=== PATIENT | female | born 1950 | race Caucasian/White ===

== ENCOUNTER → 2018-05-24 | Outpatient (REF) | payer MEDICARE ==
[~2018-05-24] MED LIST: ALB0.5 INH; AML5 PO; AMLO-104 PO; ASC500 PO; ASCO60LO11 PO; ASPI-715 PO; AZIT500T47 PO; BUPXL150 PO; CALC600T72 PO; CHOL100062 PO; CIP500 PO; CLA500 PO; DUONEB INH; ESOM40CA42 PO; EZE10 PO; FOL1 PO; FURO-45 PO; GLI5 PO; GUAI1200 PO; HCTZ25 PO; HUMALOG SC; INSU100I36 SQ; LANI SC; LANI SUBQ; LEV500 PO; LOR5 PO; LOR5/325 PO; MET16 PO; METF-420 PO; METH25VI IJ; MON10 PO; MOXI400T28 PO; MULT-1 PO; NEB5 PO; OM-31CAP PO; OMEG-11 PO; OXYC-865 PO; OXYC20TA86 PO; OXYGEN INH; PAN40 PO; PER PO; PRA20 PO; PRAV10TA45 PO; PRE10 PO; PRE20 PO; PREG25 PO; QUIN40TA24 PO; SITA100T9 PO; TIO18R INH; VIT D; VITA-324 PO; VITA1CAP8 PO; [UNRECOGNIZED DRUG - CODE] PO; [UNRECOGNIZED DRUG - CODE] PO
== END ==
LOC: ZZSENDIN 14:39
PROVIDERS: ATTEND Family Medicine
DX: R60.0 Localized edema (principal)
CPT/HCPCS: 83880

== ENCOUNTER 2018-11-26 12:33 | Emergency (ER) | payer MEDICARE ==
--- NOTE | 2018-11-26 13:17 | ER Report ---
History and Physical Time Seen By MD: 12:45 Hx. of Stated Complaint: pt reports severe swelling in lower extremities past month, started weeping yesterday, pain in legs HPI/ROS CHIEF COMPLAINT: Leg swelling and pain HISTORY OF PRESENT ILLNESS: 68-year-old female presents with one month of right lower extremity greater than left lower extremity swelling with pain. Patient notes persistent swelling that has been gradually increasing and started day ago was associated with clear drainage from the right calf. Patient has history of CHF and COPD and is on 3 L of oxygen for COPD. She continues to smoke a half a pack a day. She is supposed to be on Lasix but states that states she stopped taking her medications one month ago as she ran out of money. She has had ongoing dyspnea that has been worse times one month but is not acutely worse at this point. She denies chest pain. She states she has had chills times one month and those are gradually worse and increased at this point as well. She denies abdominal pain or vomiting. No change in urination. No diarrhea. She denies history of DVT. Nursing note states blood clots, however upon clarification, patient points to varicose veins at the heels and states that she was told this may be blood clots. She has never been on anticoagulation. She does take a baby aspirin daily. No recent travel REVIEW OF SYSTEMS: Constitutional: above Eyes: No discharge. ENT: No sore throat. Cardiovascular: No chest pain, no palpitations. Respiratory: above Gastrointestinal: No abdominal pain, no vomiting. Genitourinary: no change in urination Musculoskeletal: No back pain; otherwise as above Skin: lower extremity as above Neurological: No headache. Remainder of the 14 system rev: Yes Allergies: Coded Allergies: Penicillins (Verified Allergy, Mild, HIVES, 09/27/14) Home Meds Active Scripts Sulfamethoxazole/Trimet 800-160 Mg Tab (BACTRIM DS TABLET) 1 Each Tablet, 1 TAB PO Q12H for 7 Days, #14 TAB Prov:KAVITA MALIK MD 11/26/18 Reported Medications Guaifenesin (MUCINEX) 1,200 Mg Tbmp.12hr, 1200 MG PO PRN for CONGESTION 12/18/15 Vitamin B Complex (B Complete) 1 Tab Tablet, 1 TAB PO QDAY 11/07/12 Pravastatin Sod (Pravachol) 20 Mg Tab, 10 MG PO QDAY 11/07/12 Oxygen (Oxygen) 2 L Inha, 3 L INH HS At night and as needed during the day 11/07/12 Folic Acid (FOLIC ACID (OR EQUIV)) 1 Mg Tab, 1 MG PO QDAY 11/07/12 Calcium Citrate (Calcium Citrate) 500 Gm Powder, 500 GM PO 11/07/12 Albuterol/Ipratropium (Duoneb) 3 Ml Soln, 3 ML INH TID 04/10/12 Furosemide (Furosemide) 20 Mg Tablet, 20 MG PO TID 2 tablets in AM and 1 tablet in the afternoon 04/02/12 Pantoprazole Sod (Protonix) 40 Mg Tabec, 40 MG PO QDAY 04/02/12 Nebivolol Hcl (Bystolic) 5 Mg Tablet, 5 MG PO DAILY 04/02/12 Sitagliptin Phosphate (Januvia) 100 Mg Tablet, 100 MG PO DAILY 04/02/12 Insulin Glargine (Lantus) 100 U/Ml Soln, 80 U SC QAM 04/02/12 Tiotropium [place] (Spiriva) 18 Mcg Inh, 1 PUFF INH DAILY 04/02/12 Albuterol Sulfate (Albuterol Inh Conc) 2.5 Mg/0.5 Ml Nebu, 2.5 MG INH Q2H 09/03/11 Aspirin (Aspirin) 81 Mg Tablet.dr, 81 MG PO DAILY 09/03/11 Docosahexanoic Acid/Epa (Fish Oil 1,000 Mg Capsule) 1 Cap Capsule, 1 CAP PO DAILY 09/03/11 Pregabalin (Lyrica) 25 Mg Cap, 75 MG PO BID 09/03/11 Insulin Human Lispro (Humalog) 100 U/Ml Soln, 6-8 UNIT SC TIDAC 09/03/11 Multivitamins W-Minerals/Lut (Centrum Silver Tablet) 1 Tab Tablet, 1 TAB PO DAILY 09/03/11 Bupropion Hcl (Wellbutrin Xl) 150 Mg Tabcr, 150 MG PO BID 09/03/11 Montelukast Sodium (Singulair) 10 Mg Tab, 10 MG PO QDAY 09/03/11 Quinapril Hcl (Accupril) 40 Mg Tablet, 40 MG PO BID 09/03/11 Metformin Hcl (Glucophage) 1,000 Mg Tablet, 1000 MG PO BIDBS Resume 11/0909/03/11 Discontinued Reported Medications Insulin Glargine (LANTUS) 100 Unit/Ml Soln, 60 UNIT SUBQ QHS, ML 12/18/15 Ezetimibe (Zetia) 10 Mg Tab, 10 MG PO QHS 11/07/12 Glyburide (GLYBURIDE) 5 Mg Tablet, 5 MG PO QDAY 11/07/12 Methotrexate Sodium/Pf (Methotrexate 1 Gm/40 Ml Vial) 25 Mg/1 Ml Vial, 0.6 MG IJ Weekly 09/03/11 Reviewed Nurses Notes: Yes Old Medical Records Reviewed: Yes Hx Smoking: Yes Smoking Status: Current: Every Day Smoker Exposure to Second Hand Smoke?: Yes Hx Substance Use Disorder: No Hx Alcohol Use: Yes (dmitry at night ) Constitutional Vital Sign - Last 24 Hours 11/26/18 11/26/18 11/26/18 11/26/18 12:40 12:43 12:48 13:00 Temp 98.3 Pulse 79 76 Resp 20 B/P (MAP) 131/55 (80) 131/55 135/56 (82) Pulse Ox 85 99 O2 Delivery Room Air 11/26/18 11/26/18 11/26/18 11/26/18 13:03 13:18 13:30 13:33 Pulse 78 76 77 B/P (MAP) 124/52 (76) Pulse Ox 95 97 92 11/26/18 11/26/18 11/26/18 11/26/18 13:38 13:53 14:00 14:08 Pulse 76 78 76 Resp 17 20 B/P (MAP) 139/55 (83) Pulse Ox 97 94 11/26/18 11/26/18 11/26/18 11/26/18 14:23 14:30 14:38 14:53 Pulse 81 78 77 Resp 50 57 B/P (MAP) 130/56 (80) Pulse Ox 92 94 11/26/18 11/26/18 11/26/18 11/26/18 15:00 15:08 15:23 15:30 Pulse 78 77 Resp 18 20 B/P (MAP) 125/55 (78) ???/??? (1665) Pulse Ox 95 94 11/26/18 11/26/18 11/26/18 11/26/18 15:35 15:50 16:00 16:05 Pulse 78 ? Resp 54 B/P (MAP) ???/??? (1665) Pulse Ox 94 11/26/18 11/26/18 11/26/18 11/26/18 16:20 16:30 16:35 16:50 Pulse 77 76 75 Resp 45 18 B/P (MAP) 127/54 (78) Pulse Ox 93 93 95 11/26/18 11/26/18 11/26/18 17:00 17:05 17:20 Pulse ? B/P (MAP) 136/54 (81) Physical Exam General Appearance: The patient is alert, has no immediate need for airway protection and no signs of toxicity. Eyes: Pupils equal and round no pallor or injection. ENT, Mouth: Mucous membranes are moist. Respiratory: basilar occ ronchi. No wheezes, no tachypnea Cardiovascular: Regular rate and rhythm. Gastrointestinal: Abdomen is soft and non tender, no masses, bowel sounds normal. Neurological: alert, oriented, no gross deficits Skin: mild erythema 8x8cm r medial calf that overlies edema, with clear serous drainage. Musculoskeletal: R popliteal ttp without fullness or mass. R distal thigh ttp without cord. R edema throughout ankle/calf to knee with fullness r mid medial calf without clear cellulitis or lymphangitic spread. Mild L ankle edema. CR < 2sec bilaterally. Compartments are soft. DIFFERENTIAL DIAGNOSIS: After history and physical exam differential diagnosis was considered for DVT, cellulitis, chf, carmen, or other emergent cause of symptoms. Medical Decision Making Data Points Result Diagram: 11/26/18 1320 11/26/18 1320 Laboratory Hematology Test 11/26/18 13:20 11/26/18 14:00 Red Blood Count 3.53 M/uL (4.17-5.56) Mean Corpuscular Volume 75.5 fL (80.0-96.0) Mean Corpuscular Hemoglobin 22.5 pg (26.0-33.0) Mean Corpuscular Hemoglobin Concent 29.7 g/dL (32.0-36.0) Red Cell Distribution Width 20.8 % (11.5-14.5) Mean Platelet Volume 7.8 fL (7.2-11.1) Neutrophils (%) (Auto) 54.7 % (39.4-72.5) Lymphocytes (%) (Auto) 32.1 % (17.6-49.6) Monocytes (%) (Auto) 10.9 % (4.1-12.4) Eosinophils (%) (Auto) 1.5 % (0.4-6.7) Basophils (%) (Auto) 0.8 % (0.3-1.4) Nucleated RBC Relative Count (auto) 0.0 /100WBC Neutrophils # (Auto) 2.2 K/uL (2.0-7.4) Lymphocytes # (Auto) 1.3 K/uL (1.3-3.6) Monocytes # (Auto) 0.4 K/uL (0.3-1.0) Eosinophils # (Auto) 0.1 K/uL (0.0-0.5) Basophils # (Auto) 0.0 K/uL (0.0-0.1) Nucleated RBC Absolute Count (auto) 0.00 K/uL Prothrombin Time 14.6 seconds (12.0-14.4) Prothromb Time International Ratio 1.14 Activated Partial Thromboplast Time 37 seconds (23-35) Sodium Level 138 mmol/L (137-145) Potassium Level 3.8 mmol/L (3.5-5.0) Chloride Level 108 mmol/L (98-107) Carbon Dioxide Level 25 mmol/L (22-31) Blood Urea Nitrogen 10 mg/dl (7-18) Creatinine 0.50 mg/dl (0.52-1.04) Glomerular Filtration Rate Calc > 60.0 Random Glucose 115 mg/dl (75-110) Calcium Level 8.0 mg/dl (8.4-10.2) Total Bilirubin 0.1 mg/dl (0.2-1.3) Aspartate Amino Transf (AST/SGOT) 32 U/L (0-35) Alanine Aminotransferase (ALT/SGPT) 27 U/L (0-56) Alkaline Phosphatase 170 U/L (0-126) B-Type Natriuretic Peptide 17 pg/ml (0-100) Total Protein 6.3 g/dl (6.3-8.2) Albumin 2.8 g/dl (3.5-5.0) Urine Color Yellow Urine Clarity Clear Urine pH 5.0 pH (4.8-9.5) Urine Specific [place] 1.021 Urine Protein Negative mg/dL (NEGATIVE) Urine Glucose (UA) Negative mg/dL (NEGATIVE) Urine Ketones Negative mg/dL (NEGATIVE) Urine Blood Negative (NEGATIVE) Urine Nitrite Negative (NEGATIVE) Urine Bilirubin Negative (NEGATIVE) Urine Urobilinogen 2.0 mg/dL (0.2-1.9) Urine Leukocyte Esterase Negative (NEGATIVE) Urine RBC None /HPF (0-2/HPF) Urine WBC 3 /HPF (0-5/HPF) Urine Squamous Epithelial Cells Many /LPF (NONE-FEW) Urine Bacteria Few /HPF (NONE-FEW) Urine Mucus Few /HPF (NONE-FEW) Chemistry Test 11/26/18 13:20 11/26/18 14:00 White Blood Count 4.0 k/uL (4.5-11.0) Red Blood Count 3.53 M/uL (4.17-5.56) Hemoglobin 7.9 g/dL (12.0-16.0) Hematocrit 26.7 % (34.0-47.0) Mean Corpuscular Volume 75.5 fL (80.0-96.0) Mean Corpuscular Hemoglobin 22.5 pg (26.0-33.0) Mean Corpuscular Hemoglobin Concent 29.7 g/dL (32.0-36.0) Red Cell Distribution Width 20.8 % (11.5-14.5) Platelet Count 133 K/uL (150-450) Mean Platelet Volume 7.8 fL (7.2-11.1) Neutrophils (%) (Auto) 54.7 % (39.4-72.5) Lymphocytes (%) (Auto) 32.1 % (17.6-49.6) Monocytes (%) (Auto) 10.9 % (4.1-12.4) Eosinophils (%) (Auto) 1.5 % (0.4-6.7) Basophils (%) (Auto) 0.8 % (0.3-1.4) Nucleated RBC Relative Count (auto) 0.0 /100WBC Neutrophils # (Auto) 2.2 K/uL (2.0-7.4) Lymphocytes # (Auto) 1.3 K/uL (1.3-3.6) Monocytes # (Auto) 0.4 K/uL (0.3-1.0) Eosinophils # (Auto) 0.1 K/uL (0.0-0.5) Basophils # (Auto) 0.0 K/uL (0.0-0.1) Nucleated RBC Absolute Count (auto) 0.00 K/uL Prothrombin Time 14.6 seconds (12.0-14.4) Prothromb Time International Ratio 1.14 Activated Partial Thromboplast Time 37 seconds (23-35) Glomerular Filtration Rate Calc > 60.0 Calcium Level 8.0 mg/dl (8.4-10.2) Total Bilirubin 0.1 mg/dl (0.2-1.3) Aspartate Amino Transf (AST/SGOT) 32 U/L (0-35) Alanine Aminotransferase (ALT/SGPT) 27 U/L (0-56) Alkaline Phosphatase 170 U/L (0-126) B-Type Natriuretic Peptide 17 pg/ml (0-100) Total Protein 6.3 g/dl (6.3-8.2) Albumin 2.8 g/dl (3.5-5.0) Urine Color Yellow Urine Clarity Clear Urine pH 5.0 pH (4.8-9.5) Urine Specific [place] 1.021 Urine Protein Negative mg/dL (NEGATIVE) Urine Glucose (UA) Negative mg/dL (NEGATIVE) Urine Ketones Negative mg/dL (NEGATIVE) Urine Blood Negative (NEGATIVE) Urine Nitrite Negative (NEGATIVE) Urine Bilirubin Negative (NEGATIVE) Urine Urobilinogen 2.0 mg/dL (0.2-1.9) Urine Leukocyte Esterase Negative (NEGATIVE) Urine RBC None /HPF (0-2/HPF) Urine WBC 3 /HPF (0-5/HPF) Urine Squamous Epithelial Cells Many /LPF (NONE-FEW) Urine Bacteria Few /HPF (NONE-FEW) Urine Mucus Few /HPF (NONE-FEW) Coagulation Test 11/26/18 13:20 Prothrombin Time 14.6 seconds Prothromb Time International Ratio 1.14 Activated Partial Thromboplast Time 37 seconds Urinalysis Test 11/26/18 14:00 Urine Color Yellow Urine Clarity Clear Urine pH 5.0 pH (4.8-9.5) Urine Specific [place] 1.021 Urine Protein Negative mg/dL (NEGATIVE) Urine Glucose (UA) Negative mg/dL (NEGATIVE) Urine Ketones Negative mg/dL (NEGATIVE) Urine Blood Negative (NEGATIVE) Urine Nitrite Negative (NEGATIVE) Urine Bilirubin Negative (NEGATIVE) Urine Urobilinogen 2.0 mg/dL (0.2-1.9) Urine Leukocyte Esterase Negative (NEGATIVE) Urine RBC None /HPF (0-2/HPF) Urine WBC 3 /HPF (0-5/HPF) Urine Squamous Epithelial Cells Many /LPF (NONE-FEW) Urine Bacteria Few /HPF (NONE-FEW) Urine Mucus Few /HPF (NONE-FEW) Microbiology Microbiology Date/Time Source Procedure Growth Status 11/26/18 15:07 Blood Peripheral Draw Blood Culture - Preliminary NO GROWTH AFTER 1 DAY, REINCUBATED Resulted 11/26/18 15:00 Blood Line Draw Blood Culture - Preliminary NO GROWTH AFTER 1 DAY, REINCUBATED Resulted EKG/Imaging EKG Interpretation 12 lead EKG: Rhythm: normal sinus rhythm [place]: normal QRS: normal ST segments: slight st dep III, avF, v4-6; NSR; ekg complicated by artifcat [ ] Monitor Interpretation: Normal Sinus Rhythm ED Course/Re-evaluation ED Course Pt presents with RLE swelling; initially concerned for DVT, chf, carmen, however initial w/up unremarkable; ultimately findings most c/w cellulitis; pt does state symptoms began before scratches from new cat, but does have multiple scratches surrounding this area; she does not have notable proximal or surrounding lymphadenopathy, therefore will cover for multiple potential etiologies; blood cultures drawn to tailor tx if necessary. Pt understands SRP's and is hd stable on d/c. Decision to Disposition Date: Nov 26, 2018 Decision to Disposition Time: 16:55 Depart Departure Latest Vital Signs Vital Signs Date Time Temp Pulse Resp B/P (MAP) Pulse Ox O2 Delivery O2 Flow Rate FiO2 11/26/18 17:20 ??? 11/26/18 17:00 136/54 (81) 11/26/18 16:50 95 11/26/18 16:35 18 11/26/18 12:43 98.3 Room Air Impression: Primary Impression: Cellulitis Additional Impression: Anemia, unspecified Condition: Improved Disposition: HOME OR SELF-CARE Referrals: MARGRET ALFONSO DO (PCP) 2 Days New Scripts Sulfamethoxazole/Trimet 800-160 Mg Tab (BACTRIM DS TABLET) 1 Each Tablet 1 TAB PO Q12H for 7 Days, #14 TAB Prov: KAVITA MALIK MD 11/26/18 Patient Instructions: Anemia (ED), Cellulitis (ED) Additional Instructions: As we discussed, it is important you take the complete course of antibiotics for yoru infection. Please follow up with your primary doctor in 2-3 days for recheck of your leg, as well as reassessment of your other medical problems. You have evidence of worsening anemia (low blood count) and fluid overload. You need to restart the medications you have been prescribed by your primary doctor. Please return immediately for worsening swelling, pain, fevers, feeling faint, reaction to medication or any concerns. You may use aspirin and tylenol for pain, as well as ice 20 minutes at a time. Problem Qualifiers Primary Impression: Cellulitis Site of cellulitis: extremity Site of cellulitis of extremity: lower extremity Laterality: right Qualified Codes: L03.115 - Cellulitis of right lower limb Additional Impression: Anemia, unspecified Anemia type: unspecified type Qualified Codes: D64.9 - Anemia, unspecified KAVITA MALIK MD Nov 26, 2018 13:17
[2018-11-26 13:35] LABS: PLATELET COUNT, AUTOMATED 133 K/uL (150-450)
[2018-11-26 13:42] LABS: INR 1.14
--- NOTE | 2018-11-26 13:52 | EKG ---
FACILITY: [facility] PATIENT NAME: VIKKI BARRAZA : [id number] MR: [id number] V: [id number] EXAM DATE: ORDERING PHYSICIAN: KAVITA MALIK TECHNOLOGIST: TE Test Reason : DYSPNEA Blood Pressure : / mmHG Vent. Rate : 074 BPM Atrial Rate : 075 BPM P-R Int : 000 ms QRS Dur : 086 ms QT Int : 394 ms P-R-T Axes : 000 043 046 degrees QTc Int : 437 ms Accelerated Junctional rhythm Significant artifact makes interpretation impossible. When compared with ECG of 07-NOV-2012 12:44, Artifact continues to interfere with interpretation Confirmed by Sohan Jaimes ([id number]) on 11/27/2018 6:55:13 AM Referred By: KING Confirmed By:Sohan Fierro
--- NOTE | 2018-11-26 14:06 | RADIOLOGY IMAGING REPORT ---
[place] [facility] [place] Sierra Oviedo : 1950 MR: [id number] V: [id number] EXAM DATE: ORDERING PHYSICIAN: KAVITA MALIK TECHNOLOGIST: Location: [facility] Patient: Sierra Oviedo : 1950 Visit/Account:[id number] Date of Sevice: 11/26/2018 EXAMINATION: Portable AP Chest 11/26/2018 1:02 PM HISTORY: dyspnea COMPARISON: 11/07/2012 FINDINGS: Cardiomediastinal contours: Essentially stable heart size allowing for positioning and technique. Ath erosclerotic aorta. Lungs and pleura: Vasculature is unchanged. Minimal atelectasis or scarring in the bases. Bones/soft tissues: Osteopenia. IMPRESSION: No significant acute cardiopulmonary finding. Report Dictated By: Jhoan Agarwal MD at 11/26/2018 2:01 PM Report E-Signed By: Jhoan Agarwal MD at 11/26/2018 2:03 PM WSN:[id number]
--- NOTE | 2018-11-26 14:49 | RADIOLOGY IMAGING REPORT ---
FACILITY: [facility] PATIENT NAME: Sierra Oviedo : 1950 MR: [id number] V: [id number] EXAM DATE: ORDERING PHYSICIAN: KAVITA MALIK TECHNOLOGIST: Location: [facility] [place] Patient: Sierra Oviedo : 1950 Visit/Account:[id number] Date of Sevice: 11/26/2018 EXAMINATION: Unilateral right lower extremity deep vein duplex Doppler ultrasound 11/26/2018 1:02 PM History: right calf edema, r popliteal ttp COMPARISON: None FINDINGS: Grayscale compression, duplex and color Doppler interrogation of the right lower extremity deep veins from common femoral vein to proximal calf was performed. The greater saphenous vein in the ipsilater al proximal thigh was evaluated using similar technique. Right lower extremity: Common femoral vein negative Femoral vein negative Deep femoral vein - negative Popliteal vein negative Visualized deep calf veins negative for clot. There is subcutaneous edema in the lower leg and behin d the knee. Greater saphenous vein in the proximal thigh negative Popliteal fossa: negative IMPRESSION: Negative right lower extremity evaluation for DVT Report Dictated By: Jhoan Agarwal MD at 11/26/2018 2:44 PM Report E-Signed By: Jhoan Agarwal MD at 11/26/2018 2:46 PM WSN:[email or web address]
[2018-11-26] MEDS ORDERED: VANCOMYCIN(*) 1 GM VIAL 1 GM, VANCOMYCIN (*) 0.5 GM VIAL 0.2 GM in NS(*) 0.9% 250 ML BA... IVPB ONE (14:55)
[2018-11-26] MEDS ORDERED: DIPHTH/TETANUS/ACEL. PERTUSSIS IM ONLY ONE (14:55)
[2018-11-26] MEDS ORDERED: IOPAMIDOL 76% 75 ML INFUS BTL 75 ML ONE (15:07)
--- NOTE | 2018-11-26 16:40 | RADIOLOGY IMAGING REPORT ---
FACILITY: [facility] PATIENT NAME: Sierra Oviedo : 1950 MR: [id number] V: [id number] EXAM DATE: ORDERING PHYSICIAN: KAVITA MALIK TECHNOLOGIST: Location: [facility] - [place], [place] Patient: Sierra Oviedo : 1950 Visit/Account:[id number] Date of Sevice: 11/26/2018 Exam type: CT TIB/FIB W/ RT INDICATION: Swelling of unclear etiology. Dyspnea. COMPARISON: 75 mL Isovue-[id number]. Technique: Axial CT images of the right tibia/fibula with IV contrast r. Reformatted coronal and sagi ttal images were reviewed. One of the following dose optimization techniques was utilized in the performance of this exam: autom ated exposure control; adjustment of the mA and/or kV according to the patient's size; or use of an i terative reconstruction technique. Specific details can be referenced in the facility's radiology CT exam operational policy. FINDINGS: Chronic ORIF changes from tibial plateau fracture. There is bilateral plate and screw fixation hardwa re. The inferior lateral screw is fractured, likely chronic in etiology. There are chronic chronic he aled fractures of the fibula. Chronic nonunion versus subacute fracture fracture of the mid/distal fi bular shaft. Extensive nonspecific subcutaneous edema within the calf, extending into the ankle there is no subcut aneous emphysema. No fascial or intramuscular edema or gas. No focal fluid collections identified. No gross venous thrombosis. IMPRESSION: 1. Extensive nonspecific subcutaneous edema. No subcutaneous emphysema or focal fluid collections id entified. 2. Chronic post tibial plateau ORIF changes. One of the lateral fixation screws is fractured, likely chronic. 3. 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 This theoretically coul d represent a subacute healing fracture although felt unlikely. Report Dictated By: Sunday Cantrell MD at 11/26/2018 4:29 PM Report E-Signed By: Sunday Cantrell MD at 11/26/2018 4:36 PM WSN:[id number]
[2018-11-26] MEDS ORDERED: SULF-198 PO (16:52)
[2018-11-26 17:00] VITALS: BP 136/54
== END 2018-11-26 17:25 | disposition home or self-care (01) ==
LOC: ER 12:43
DX: L03.115 Cellulitis of right lower limb (principal); D64.9 Anemia, unspecified; F17.210 Nicotine dependence, cigarettes, uncomplicated
CPT/HCPCS: 36415; 71045; 73701; 81001; 83880; 85025; 85610; 85730; 87040; 90471; 90715; 93005; 93971; 96365; 96366; 99285; A4353; J3370; J7050; Q9967; 82040; 82247; 82310; 82374; 82435; 82565; 82947; 84075; 84132; 84155; 84295; 84450; 84460; 84520

== ENCOUNTER → 2019-01-31 | Outpatient (CLI) | payer MEDICARE ==
[~2019-01-31] MED LIST changes: +SULF-198 PO
--- NOTE | 2019-01-31 16:34 | RADIOLOGY IMAGING REPORT ---
FACILITY: [facility] PATIENT NAME: Sierra Oviedo : 1950 MR: [id number] V: [id number] EXAM DATE: ORDERING PHYSICIAN: MARGRET ALFONSO TECHNOLOGIST: Location: [facility] - [place] Patient: Sierra Oviedo : 1950 Visit/Account:[id number] Date of Sevice: 01/31/2019 CHEST PA LAT History: Cough and right-sided chest pain FINDINGS: Comparison studies: 11/26/2018 and 11/07/2012 Tubes and Lines: None. Lungs and pleura: There is a new hazy opacity along the right lateral pleura. Lungs appear well-ae rated. Mediastinum: normal. Cardiac silhouette: normal . Osseous structures: Old right fifth rib fracture again noted. There is a new acute right sixth and possible seventh rib fracture with mild displacement. There is a distal left clavicular shaft with one bone width displacement. Retrospectively this fract ure was present in November although difficult to see as the fracture overlying the scapula. It is ne w from 2011. IMPRESSION: Acute right lateral sixth and seventh rib fractures with subpleural reactive thickening or small he mothorax. No evidence of pneumothorax. Displaced left clavicular shaft fracture which is at least two months old. Results were called to MARGRET ALFONSO at 01/31/2019 4:12 PM. Report Dictated By: Rolf Allison MD at 01/31/2019 4:12 PM Report E-Signed By: Rolf Allison MD at 01/31/2019 4:30 PM WSN:[email or web address]
== END ==
LOC: RAD 15:07
PROVIDERS: ATTEND Family Medicine
DX: S22.41XA Multiple fractures of ribs, right side, initial encounter for closed fracture (principal); S42.022A Displaced fracture of shaft of left clavicle, initial encounter for closed fracture
CPT/HCPCS: 71046

== ENCOUNTER 2019-02-13 17:16 | Emergency (ER) | payer MEDICARE ==
--- NOTE | 2019-02-13 17:24 | ER Report ---
History and Physical Time Seen By MD: 17:18 HPI/ROS CHIEF COMPLAINT: fall HISTORY OF PRESENT ILLNESS: PT had a fall three times today. Initial fall was this am when sitting up on side of bed and tried to move the dog and tripped on dog. States she hit her chin when she fell this am. Denies headache or neck pain. EMS was called for lift assist at that time. PT this afternoon fell a second time getting coffee in the kitchen. Ems was called for lift assist. PT had a third fall airplane captain stating "my legs are wobbly and gave out". Ems was called again but this time pt has obvious deformity of femur. Pt was given fentanyl 150mcg was given for pain and pt sent to ED. Pt is alert and talkative. Pt states she has pain in her mid thigh and cannot move her leg. Pt denies numbness. PT with large abdomen but states that is not new. PT has doppler pulses b/l lwer extremities REVIEW OF SYSTEMS: Constitutional: No fever, no chills. Eyes: No discharge. ENT: No sore throat. Cardiovascular: No chest pain, no palpitations. Respiratory: No cough, no shortness of breath. Gastrointestinal: No abdominal pain, no vomiting. Genitourinary: No hematuria. Musculoskeletal: No back pain. r leg pain Skin: No rashes. Neurological: No headache. Allergies: Coded Allergies: Penicillins (Verified Allergy, Mild, HIVES, 02/13/19) Home Meds Active Scripts Sulfamethoxazole/Trimet 800-160 Mg Tab (BACTRIM DS TABLET) 1 Each Tablet, 1 TAB PO Q12H for 7 Days, #14 TAB Prov:KAVITA MALIK MD 11/26/18 Reported Medications Guaifenesin (MUCINEX) 1,200 Mg Tbmp.12hr, 1200 MG PO PRN for CONGESTION 12/18/15 Vitamin B Complex (B Complete) 1 Tab Tablet, 1 TAB PO QDAY 11/07/12 Pravastatin Sod (Pravachol) 20 Mg Tab, 10 MG PO QDAY 11/07/12 Oxygen (Oxygen) 2 L Inha, 3 L INH HS At night and as needed during the day 11/07/12 Folic Acid (FOLIC ACID (OR EQUIV)) 1 Mg Tab, 1 MG PO QDAY 11/07/12 Calcium Citrate (Calcium Citrate) 500 Gm Powder, 500 GM PO 11/07/12 Albuterol/Ipratropium (Duoneb) 3 Ml Soln, 3 ML INH TID 04/10/12 Furosemide (Furosemide) 20 Mg Tablet, 20 MG PO TID 2 tablets in AM and 1 tablet in the afternoon 04/02/12 Pantoprazole Sod (Protonix) 40 Mg Tabec, 40 MG PO QDAY 04/02/12 Nebivolol Hcl (Bystolic) 5 Mg Tablet, 5 MG PO DAILY 04/02/12 Sitagliptin Phosphate (Januvia) 100 Mg Tablet, 100 MG PO DAILY 04/02/12 Insulin Glargine (Lantus) 100 U/Ml Soln, 80 U SC QAM 04/02/12 Tiotropium [place] (Spiriva) 18 Mcg Inh, 1 PUFF INH DAILY 04/02/12 Albuterol Sulfate (Albuterol Inh Conc) 2.5 Mg/0.5 Ml Nebu, 2.5 MG INH Q2H 09/03/11 Aspirin (Aspirin) 81 Mg Tablet.dr, 81 MG PO DAILY 09/03/11 Docosahexanoic Acid/Epa (Fish Oil 1,000 Mg Capsule) 1 Cap Capsule, 1 CAP PO DAILY 09/03/11 Pregabalin (Lyrica) 25 Mg Cap, 75 MG PO BID 09/03/11 Insulin Human Lispro (Humalog) 100 U/Ml Soln, 6-8 UNIT SC TIDAC 09/03/11 Multivitamins W-Minerals/Lut (Centrum Silver Tablet) 1 Tab Tablet, 1 TAB PO DAILY 09/03/11 Bupropion Hcl (Wellbutrin Xl) 150 Mg Tabcr, 150 MG PO BID 09/03/11 Montelukast Sodium (Singulair) 10 Mg Tab, 10 MG PO QDAY 09/03/11 Quinapril Hcl (Accupril) 40 Mg Tablet, 40 MG PO BID 09/03/11 Metformin Hcl (Glucophage) 1,000 Mg Tablet, 1000 MG PO BIDBS Resume 11/0909/03/11 Past Medical/Surgical History Pmhx: hypertension, hyperlipidemia, sinus infections and ear infections, pneumonia, COPD, reflux, hiatal hernia, uterine ablation, arthritis, fractures in both legs, collarbone, diabetes, rheumatoid arthritis, alcohol use. Pshx: left leg surgery, uterine ablation, cholecystectomy. PFhx: psychiatric problems. Hx Smoking: Yes Smoking Status: Current: Every Day Smoker Exposure to Second Hand Smoke?: Yes Hx Substance Use Disorder: No Hx Alcohol Use: Yes (dmitry at night ) Constitutional Vital Sign - Last 24 Hours 02/13/19 02/13/19 02/13/19 02/13/19 17:21 17:21 17:25 17:31 Temp 97.4 Pulse 70 68 Resp 18 15 B/P (MAP) 110/55 (73) 110/55 Pulse Ox 90 95 O2 Delivery Nasal Cannula O2 Flow Rate 4.0 02/13/19 02/13/19 02/13/19 02/13/19 17:46 17:57 18:01 18:08 Pulse 68 Resp 16 21 B/P (MAP) 108/43 (64) 106/49 (68) Pulse Ox 94 80 02/13/19 18:16 Pulse 69 Resp 21 Pulse Ox 96 Physical Exam General Appearance: The patient is alert, has no immediate need for airway protection and no signs of toxicity. Eyes: Pupils equal and round no pallor or injection, EOMI ENT: no pharyngeal erythema or exudates, Mucous membranes are moist, TM are nl b/l, neg hemotympanums Respiratory: There are no retractions, lungs are clear to auscultation. Cardiovascular: Regular rate and rhythm. pulses are equal and symmetrical Gastrointestinal: Abdomen is distended and ascites, no masses, bowel sounds normal, no guarding, no rigidity or rebound Neurological: Cranial nerves II-XII grossly intact, no sensory or motor loss Skin: Warm and dry, no rashes. Musculoskeletal: Neck is supple non tender, no vertebral tenderness Upper Extremities are nontender, nonswollen and have full range of motion. Lower extremitites: + mid thigh deformity right leg; + unable to feel pulses b/l dorsal pedal or posterior tibial but both were available by doppler DIFFERENTIAL DIAGNOSIS: After history and physical exam differential diagnosis was considered for femur fx, r hip fx, lower extremity fx on right, cervical fx Medical Decision Making Data Points Result Diagram: 02/13/19175502/13/191755 Laboratory Hematology Test 02/13/19 17:56 02/13/19 18:08 02/13/19 18:17 Red Blood Count 3.84 M/uL (4.17-5.56) Mean Corpuscular Volume 74.1 fL (80.0-96.0) Mean Corpuscular Hemoglobin 22.3 pg (26.0-33.0) Mean Corpuscular Hemoglobin Concent 30.1 g/dL (32.0-36.0) Red Cell Distribution Width 19.9 % (11.5-14.5) Mean Platelet Volume 7.6 fL (7.2-11.1) Neutrophils (%) (Auto) 72.7 % (39.4-72.5) Lymphocytes (%) (Auto) 18.6 % (17.6-49.6) Monocytes (%) (Auto) 7.4 % (4.1-12.4) Eosinophils (%) (Auto) 0.6 % (0.4-6.7) Basophils (%) (Auto) 0.7 % (0.3-1.4) Nucleated RBC Relative Count (auto) 0.0 /100WBC Neutrophils # (Auto) 5.1 K/uL (2.0-7.4) Lymphocytes # (Auto) 1.3 K/uL (1.3-3.6) Monocytes # (Auto) 0.5 K/uL (0.3-1.0) Eosinophils # (Auto) 0.0 K/uL (0.0-0.5) Basophils # (Auto) 0.0 K/uL (0.0-0.1) Nucleated RBC Absolute Count (auto) 0.00 K/uL Peripheral Blood Smear Y/N Sodium Level 127 mmol/L (137-145) Potassium Level 4.5 mmol/L (3.5-5.0) Chloride Level 94 mmol/L (98-107) Carbon Dioxide Level 22 mmol/L (22-31) Blood Urea Nitrogen 18 mg/dl (7-18) Creatinine 1.00 mg/dl (0.52-1.04) Glomerular Filtration Rate Calc 55.5 Random Glucose 98 mg/dl (75-110) Calcium Level 8.1 mg/dl (8.4-10.2) Total Bilirubin 0.9 mg/dl (0.2-1.3) Aspartate Amino Transf (AST/SGOT) 40 U/L (0-35) Alanine Aminotransferase (ALT/SGPT) 28 U/L (0-56) Alkaline Phosphatase 170 U/L (0-126) Total Protein 6.3 g/dl (6.3-8.2) Albumin 2.6 g/dl (3.5-5.0) Serum Alcohol < 10 mg/dl Chemistry Test 02/13/19 17:56 02/13/19 18:08 02/13/19 18:17 White Blood Count 7.1 k/uL (4.5-11.0) Red Blood Count 3.84 M/uL (4.17-5.56) Hemoglobin 8.6 g/dL (12.0-16.0) Hematocrit 28.4 % (34.0-47.0) Mean Corpuscular Volume 74.1 fL (80.0-96.0) Mean Corpuscular Hemoglobin 22.3 pg (26.0-33.0) Mean Corpuscular Hemoglobin Concent 30.1 g/dL (32.0-36.0) Red Cell Distribution Width 19.9 % (11.5-14.5) Platelet Count 168 K/uL (150-450) Mean Platelet Volume 7.6 fL (7.2-11.1) Neutrophils (%) (Auto) 72.7 % (39.4-72.5) Lymphocytes (%) (Auto) 18.6 % (17.6-49.6) Monocytes (%) (Auto) 7.4 % (4.1-12.4) Eosinophils (%) (Auto) 0.6 % (0.4-6.7) Basophils (%) (Auto) 0.7 % (0.3-1.4) Nucleated RBC Relative Count (auto) 0.0 /100WBC Neutrophils # (Auto) 5.1 K/uL (2.0-7.4) Lymphocytes # (Auto) 1.3 K/uL (1.3-3.6) Monocytes # (Auto) 0.5 K/uL (0.3-1.0) Eosinophils # (Auto) 0.0 K/uL (0.0-0.5) Basophils # (Auto) 0.0 K/uL (0.0-0.1) Nucleated RBC Absolute Count (auto) 0.00 K/uL Peripheral Blood Smear Y/N Glomerular Filtration Rate Calc 55.5 Calcium Level 8.1 mg/dl (8.4-10.2) Total Bilirubin 0.9 mg/dl (0.2-1.3) Aspartate Amino Transf (AST/SGOT) 40 U/L (0-35) Alanine Aminotransferase (ALT/SGPT) 28 U/L (0-56) Alkaline Phosphatase 170 U/L (0-126) Total Protein 6.3 g/dl (6.3-8.2) Albumin 2.6 g/dl (3.5-5.0) Serum Alcohol < 10 mg/dl Coagulation Test 02/13/19 17:56 Toxicology Test 02/13/19 18:17 Serum Alcohol < 10 mg/dl Urinalysis Test 02/13/19 18:08 ED Course/Re-evaluation Clinical Indication for ER IV: IV Access ED Course Will xray the leg and then place in traction if needed. Pt will require ct of head and c-spine due to distracting injury. Will place in collar. will place roe 02/13/2019 5:59:12 pm awaiting official readings however pt with obvious oblique mid shaft fracture. will place pt in traction and will call [facility] for transfer. pt is aware that she is needing to go to [place]. XRAY: old pelvis ramus fx on left; old tib/fib fx on right with hardware in right knee. 02/13/2019 6:01:59 pm Page out to trauma surgeon at [facility]. ALso page out to [facility] to see if flying. Roe being placed and pt placed in traction. 02/13/2019 6:32:[address] Asencio, trauma surgeon who accepts pt. He would like us to CT head, c-spine, chest/abd/pelvis if possible prior to transfer. PT is going by helicopter due to pts hb, unstable fracture and concern for developing compartment syndrome if needs to wait for ambulance which is gong to be a long delay secondary to [facility] is down one ambulance and the other is already on a transport. 02/13/2019 6:36:[address] and was just told that CT does not have any IV contrast available in the hospital. Will continue to scan without contrast. Helicopter is in route and pt will be transferred when they arrive. Decision to Disposition Date: Feb 13, 2019 Decision to Disposition Time: 18:38 Depart Departure Latest Vital Signs Vital Signs Date Time Temp Pulse Resp B/P (MAP) Pulse Ox O2 Delivery O2 Flow Rate FiO2 02/13/19 18:16 69 21 96 02/13/19 18:08 106/49 (68) 02/13/19 17:25 4.0 02/13/19 17:21 97.4 Nasal Cannula Impression: Primary Impression: Femur fracture, right Additional Impression: Fall Condition: Stable Disposition: XFER TO [facility] Referrals: MARGRET ALFOSNO DO (PCP) Problem Qualifiers Primary Impression: Femur fracture, right Encounter type: initial encounter Femur location: shaft Fracture type: closed Fracture morphology: oblique Fracture alignment: displaced Qualified Codes: S72.331A - Displaced oblique fracture of shaft of right femur, initial encounter for closed fracture Additional Impression: Fall Encounter type: initial encounter Qualified Codes: W19.XXXA - Unspecified fall, initial encounter TASH LEDESMA DO Feb 13, 2019 17:24
[2019-02-13] MEDS ORDERED: DIPHTH/TETANUS/ACEL. PERTUSSIS IM ONE (17:25)
[2019-02-13] MEDS ORDERED: EMS NS 0.9%(*) 1000 ML BAG 1,000 ML IV ONE (17:45)
[2019-02-13 18:15] LABS: PLATELET COUNT, AUTOMATED 168 K/uL (150-450)
[2019-02-13] MEDS ORDERED: fentaNYL CITR 100 MCG/2 ML AMP IVP ONE (18:15)
[2019-02-13 18:21] LABS: INR 1.18
[2019-02-13 19:00] VITALS: BP 126/49
--- NOTE | 2019-02-13 19:42 | RADIOLOGY IMAGING REPORT ---
FACILITY: [facility] - [place] PATIENT NAME: Sierra Oviedo : 1950 MR: [id number] V: [id number] EXAM DATE: ORDERING PHYSICIAN: TASH LEDESMA TECHNOLOGIST: Location: [facility] Patient: Sierra Oviedo : 1950 Visit/Account:[id number] Date of Sevice: 02/13/2019 EXAMINATION: CT HEAD AND CERVICAL SPINE WITHOUT CONTRAST COMPARISON: None available HISTORY: Fall. Right leg deformity. PROCEDURE: Noncontrast CT from the vertex through the skull base and multiplanar noncontrast cervical spine. One of the following dose optimization techniques was utilized in the performance of this exa m: Automated exposure control; adjustment of the mA and/or kV according to the patient's size; or use of an iterative reconstruction technique. Specific details can be referenced in the facility's [facility] CT exam operational policy. FINDINGS: CT head without contrast: Brain volume: Mild global volume loss. Hemorrhage/extra-axial fluid: None. Mass effect/midline shift/edema: None. Ischemia: Sanford-white differentiation is preserved. Ventricles and basal cisterns: Within normal limits. Posterior fossa: Negative. Vessels: Carotid atherosclerosis. Calvarium, skull base, and scalp: Negative. Visualized sinuses and orbits: Right maxillary sinus frothy fluid is most suggestive of inflammation. No sinus wall fracture is identified. CT cervical spine without contrast: Alignment: Minimal anterolisthesis at C2-C3 is favored to be degenerative. No acute malalignment. Cranio-cervical junction: Within normal limits. Vertebral bodies: No fracture. Posterior elements: Alignment is within normal limits with multilevel facet arthropathy, greatest inv olving the left C5-C6 and C6-C7 facet joints. No fracture. Disc spaces: Mild degenerative disc disease most notably at C4-C5 and to lesser extent C3-C4, C5-C6, and C6-C7 where posterior disc and osteophyte complexes result in minimal canal narrowing. Hardware: None. Soft tissues: No acute findings. Carotid atherosclerosis. Visualized upper chest: No acute findings. IMPRESSION: 1. No intracranial hemorrhage or mass effect. 2. No CT findings of acute ischemia. 3. No cervical spine fracture or malalignment. 4. Cervical degenerative change as described above. 5. Right maxillary sinus inflammation. 6. Carotid atherosclerosis. Report Dictated By: Kendall Rodriguez MD at 02/13/2019 7:28 PM Report E-Signed By: Kendall Rodriguez MD at 02/13/2019 7:38 PM WSN:[id number]
--- NOTE | 2019-02-13 19:42 | RADIOLOGY IMAGING REPORT ---
FACILITY: [facility] - [place] PATIENT NAME: Sierra Oviedo : 1950 MR: [id number] V: [id number] EXAM DATE: ORDERING PHYSICIAN: TASH LEDESMA TECHNOLOGIST: Location: [facility] Patient: Sierra Oviedo : 1950 Visit/Account:[id number] Date of Sevice: 02/13/2019 EXAMINATION: CT HEAD AND CERVICAL SPINE WITHOUT CONTRAST COMPARISON: None available HISTORY: Fall. Right leg deformity. PROCEDURE: Noncontrast CT from the vertex through the skull base and multiplanar noncontrast cervical spine. One of the following dose optimization techniques was utilized in the performance of this exa m: Automated exposure control; adjustment of the mA and/or kV according to the patient's size; or use of an iterative reconstruction technique. Specific details can be referenced in the facility's [facility] CT exam operational policy. FINDINGS: CT head without contrast: Brain volume: Mild global volume loss. Hemorrhage/extra-axial fluid: None. Mass effect/midline shift/edema: None. Ischemia: Sanford-white differentiation is preserved. Ventricles and basal cisterns: Within normal limits. Posterior fossa: Negative. Vessels: Carotid atherosclerosis. Calvarium, skull base, and scalp: Negative. Visualized sinuses and orbits: Right maxillary sinus frothy fluid is most suggestive of inflammation. No sinus wall fracture is identified. CT cervical spine without contrast: Alignment: Minimal anterolisthesis at C2-C3 is favored to be degenerative. No acute malalignment. Cranio-cervical junction: Within normal limits. Vertebral bodies: No fracture. Posterior elements: Alignment is within normal limits with multilevel facet arthropathy, greatest inv olving the left C5-C6 and C6-C7 facet joints. No fracture. Disc spaces: Mild degenerative disc disease most notably at C4-C5 and to lesser extent C3-C4, C5-C6, and C6-C7 where posterior disc and osteophyte complexes result in minimal canal narrowing. Hardware: None. Soft tissues: No acute findings. Carotid atherosclerosis. Visualized upper chest: No acute findings. IMPRESSION: 1. No intracranial hemorrhage or mass effect. 2. No CT findings of acute ischemia. 3. No cervical spine fracture or malalignment. 4. Cervical degenerative change as described above. 5. Right maxillary sinus inflammation. 6. Carotid atherosclerosis. Report Dictated By: Kendall Rodriguez MD at 02/13/2019 7:28 PM Report E-Signed By: Kendall Rodriguez MD at 02/13/2019 7:38 PM WSN:[id number]
--- NOTE | 2019-02-13 20:03 | RADIOLOGY IMAGING REPORT ---
FACILITY: [facility] PATIENT NAME: Sierra Oviedo : 1950 MR: [id number] V: [id number] EXAM DATE: ORDERING PHYSICIAN: TASH LEDESMA TECHNOLOGIST: Location: [facility] [place] Patient: Sierra Oviedo : 1950 Visit/Account:[id number] Date of Sevice: 02/13/2019 Examination: CT chest, abdomen, and pelvis without contrast Comparison: CT 11/07/2012 and earlier. History: Fall. Right leg deformity. Procedure: Multiplanar noncontrast imaging of the chest, abdomen, and pelvis. One of the following dose optimization techniques was utilized in the performance of this exam: Autom ated exposure control; adjustment of the mA and/or kV according to the patient's size; or use of an i terative reconstruction technique. Specific details can be referenced in the facility's radiology C T exam operational policy. Findings: Evaluation of the solid and viscus parenchymal organs and vascular structures is limited wi thout the benefit of IV contrast. CT chest: Mediastinum: Cardiac chamber size is within normal limits. Advanced coronary calcifications. Aortic v alve calcifications. No thoracic aortic aneurysm. Main pulmonary artery size is normal. No mediastina l hemorrhage. Lymph nodes: Negative. Lungs and pleura: No consolidation or suspicious nodule. No pneumothorax, edema, or effusion. Airways: Minimal debris / secretions in the distal trachea and left main bronchus. No airway occlusio n. Diaphragm: Intact. CT abdomen and pelvis: Liver: Heterogeneous and nodular cirrhotic liver. Gallbladder and biliary system: Cholecystectomy. Visualized common bile duct is within normal limits. Spleen: 11.2 cm spleen. Pancreas: Mild atrophy. No definite evidence of pancreatic inflammation. Adrenal glands: Negative Kidneys and urinary bladder: No renal mass or hydronephrosis. Urinary bladder is decompressed by Fole y catheter. Vessels: Aortoiliac advanced atherosclerosis. Although evaluation of the vessel lumens is limited by the lack of contrast, there is likely high-grade stenosis versus complete occlusion of the common emily ac arteries. Bowel and mesentery: Stomach is within normal limits. Duodenal diverticulum. No bowel obstruction. Th e appendix is not visualized. Minimal stool in the colon. No definite site of primary bowel or mesent zandra inflammation is identified. Pelvic organs: Negative. Free air/free fluid: Large volume of homogeneous low-attenuation free fluid. No pneumoperitoneum. Lymph nodes: Negative Abdominal wall and subcutaneous tissues: Diffuse edema of the subcutaneous soft tissues. Small fluid- filled umbilical hernia. Osseous structures: Thoracolumbar spine: Demineralization. No vertebral body height loss or malalignment. No fracture. Mu ltilevel mild to moderate degenerative disc disease with lumbar spine advanced facet arthropathy. Pelvic ring: Right inferior pubic ramus healed fracture. No acute fracture. Pubic symphysis moderate degenerative change. Hip alignment is within normal limits. Bilateral mild hip joint space loss. Ribs: Right posterolateral sixth rib mildly displaced acute fracture. Right seventh rib chronic nonun ited fracture and left eighth and ninth rib chronic nonunited fractures. Multiple bilateral healed fr actures Visualized sternum, scapula, and clavicles: No fracture. Glenohumeral osteoarthritis. IMPRESSION: 1. Right posterolateral sixth rib mildly displaced acute fracture. 2. Cirrhosis with a large volume of ascites. 3. Advanced atherosclerosis. Although evaluation is limited by the lack of contrast, there is potenti ally high-grade stenosis versus complete occlusion of the bilateral common iliac arteries. 4. Additional chronic/incidental findings as described above. Report Dictated By: Kendall Rodriguez MD at 02/13/2019 7:47 PM Report E-Signed By: Kendall Rodriguez MD at 02/13/2019 8:00 PM WSN:[id number]
--- NOTE | 2019-02-13 20:08 | RADIOLOGY IMAGING REPORT ---
FACILITY: [facility] - [place], [place] PATIENT NAME: Sierra Oviedo : 1950 MR: [id number] V: [id number] EXAM DATE: ORDERING PHYSICIAN: TASH LEDESMA TECHNOLOGIST: Location: [facility] [place] Patient: Sierra Oviedo : 1950 Visit/Account:[id number] Date of Sevice: 02/13/2019 Examination: FEMUR RIGHT, PELVIS, TIBIA FIBULA RIGHT, KNEE 3 VIEW RIGHT Comparison: Chest, abdomen, and pelvis CT same day. History: Fall. Right leg deformity. Findings: 1 view pelvis: Image quality is significantly degraded by the patient's body habitus. The pelvic ring appears grossly intact and is better characterized on the CT from the same day. 2 views right femur: Hip alignment is within normal limits. Mid diaphysis significantly displaced and apex lateral angulated fracture with approximately 3 cm of fracture fragment overriding. Extensive a therosclerosis. 2 views right knee: Chronic posttraumatic, postsurgical, and degenerative change of the tibial platea u. Healed fracture of the proximal fibula. Femorotibial alignment is maintained. No definite acute fr acture or malalignment is identified. No definite joint effusion. Atherosclerosis. 2 views right tibia-fibula: Demineralization with an incomplete likely healing fracture of the mid ti bial diaphysis, potentially a stress or insufficiency injury. No definite acute tibial fracture is id entified. Multiple healed fractures of the fibula are present as well. Ankle alignment is within norm al limits. IMPRESSION: 1. The pelvis is better evaluated on the pelvis CT. 2. Right femur mid diaphysis significantly displaced, angulated, and overriding fracture. 3. Right tibia plateau chronic posttraumatic, postsurgical, and degenerative change. 4. Right fibula multiple healed fractures. 5. Right tibia mid diaphysis healing incomplete fracture, potentially an insufficiency or stress frac ture. No definite acute tibia-fibula fracture. Report Dictated By: Kendall oRdriguez MD at 02/13/2019 8:00 PM Report E-Signed By: Kendall Rodriguez MD at 02/13/2019 8:05 PM WSN:[id number]
--- NOTE | 2019-02-13 20:09 | RADIOLOGY IMAGING REPORT ---
FACILITY: [facility] - [place] PATIENT NAME: Sierra Oviedo : 1950 MR: [id number] V: [id number] EXAM DATE: ORDERING PHYSICIAN: ATSH LEDESMA TECHNOLOGIST: Location: [facility] Patient: Sierra Oviedo : 1950 Visit/Account:[id number] Date of Sevice: 02/13/2019 Examination: FEMUR RIGHT, PELVIS, TIBIA FIBULA RIGHT, KNEE 3 VIEW RIGHT Comparison: Chest, abdomen, and pelvis CT same day. History: Fall. Right leg deformity. Findings: 1 view pelvis: Image quality is significantly degraded by the patient's body habitus. The pelvic ring appears grossly intact and is better characterized on the CT from the same day. 2 views right femur: Hip alignment is within normal limits. Mid diaphysis significantly displaced and apex lateral angulated fracture with approximately 3 cm of fracture fragment overriding. Extensive a therosclerosis. 2 views right knee: Chronic posttraumatic, postsurgical, and degenerative change of the tibial platea u. Healed fracture of the proximal fibula. Femorotibial alignment is maintained. No definite acute fr acture or malalignment is identified. No definite joint effusion. Atherosclerosis. 2 views right tibia-fibula: Demineralization with an incomplete likely healing fracture of the mid ti bial diaphysis, potentially a stress or insufficiency injury. No definite acute tibial fracture is id entified. Multiple healed fractures of the fibula are present as well. Ankle alignment is within norm al limits. IMPRESSION: 1. The pelvis is better evaluated on the pelvis CT. 2. Right femur mid diaphysis significantly displaced, angulated, and overriding fracture. 3. Right tibia plateau chronic posttraumatic, postsurgical, and degenerative change. 4. Right fibula multiple healed fractures. 5. Right tibia mid diaphysis healing incomplete fracture, potentially an insufficiency or stress frac ture. No definite acute tibia-fibula fracture. Report Dictated By: Kendall Rodriguez MD at 02/13/2019 8:00 PM Report E-Signed By: Kendall Rodriguez MD at 02/13/2019 8:05 PM WSN:[id number]
--- NOTE | 2019-02-13 20:09 | RADIOLOGY IMAGING REPORT ---
FACILITY: [facility] [place] PATIENT NAME: Sierra Oviedo : 1950 MR: [id number] V: [id number] EXAM DATE: ORDERING PHYSICIAN: TASH LEDESMA TECHNOLOGIST: Location: [facility] [place] Patient: Sierra Oviedo : 1950 Visit/Account:[id number] Date of Sevice: 02/13/2019 Examination: FEMUR RIGHT, PELVIS, TIBIA FIBULA RIGHT, KNEE 3 VIEW RIGHT Comparison: Chest, abdomen, and pelvis CT same day. History: Fall. Right leg deformity. Findings: 1 view pelvis: Image quality is significantly degraded by the patient's body habitus. The pelvic ring appears grossly intact and is better characterized on the CT from the same day. 2 views right femur: Hip alignment is within normal limits. Mid diaphysis significantly displaced and apex lateral angulated fracture with approximately 3 cm of fracture fragment overriding. Extensive a therosclerosis. 2 views right knee: Chronic posttraumatic, postsurgical, and degenerative change of the tibial platea u. Healed fracture of the proximal fibula. Femorotibial alignment is maintained. No definite acute fr acture or malalignment is identified. No definite joint effusion. Atherosclerosis. 2 views right tibia-fibula: Demineralization with an incomplete likely healing fracture of the mid ti bial diaphysis, potentially a stress or insufficiency injury. No definite acute tibial fracture is id entified. Multiple healed fractures of the fibula are present as well. Ankle alignment is within norm al limits. IMPRESSION: 1. The pelvis is better evaluated on the pelvis CT. 2. Right femur mid diaphysis significantly displaced, angulated, and overriding fracture. 3. Right tibia plateau chronic posttraumatic, postsurgical, and degenerative change. 4. Right fibula multiple healed fractures. 5. Right tibia mid diaphysis healing incomplete fracture, potentially an insufficiency or stress frac ture. No definite acute tibia-fibula fracture. Report Dictated By: Kendall Rodriguez MD at 02/13/2019 8:00 PM Report E-Signed By: Kendall Rodriguez MD at 02/13/2019 8:05 PM WSN:[email or web address]
--- NOTE | 2019-02-13 20:10 | RADIOLOGY IMAGING REPORT ---
FACILITY: [facility] PATIENT NAME: Sierra Oviedo : 1950 MR: [id number] V: [id number] EXAM DATE: ORDERING PHYSICIAN: TASH LEDESMA TECHNOLOGIST: Location: [facility] Patient: Sierra Oviedo : 1950 Visit/Account:[id number] Date of Sevice: 02/13/2019 Examination: FEMUR RIGHT, PELVIS, TIBIA FIBULA RIGHT, KNEE 3 VIEW RIGHT Comparison: Chest, abdomen, and pelvis CT same day. History: Fall. Right leg deformity. Findings: 1 view pelvis: Image quality is significantly degraded by the patient's body habitus. The pelvic ring appears grossly intact and is better characterized on the CT from the same day. 2 views right femur: Hip alignment is within normal limits. Mid diaphysis significantly displaced and apex lateral angulated fracture with approximately 3 cm of fracture fragment overriding. Extensive a therosclerosis. 2 views right knee: Chronic posttraumatic, postsurgical, and degenerative change of the tibial platea u. Healed fracture of the proximal fibula. Femorotibial alignment is maintained. No definite acute fr acture or malalignment is identified. No definite joint effusion. Atherosclerosis. 2 views right tibia-fibula: Demineralization with an incomplete likely healing fracture of the mid ti bial diaphysis, potentially a stress or insufficiency injury. No definite acute tibial fracture is id entified. Multiple healed fractures of the fibula are present as well. Ankle alignment is within norm al limits. IMPRESSION: 1. The pelvis is better evaluated on the pelvis CT. 2. Right femur mid diaphysis significantly displaced, angulated, and overriding fracture. 3. Right tibia plateau chronic posttraumatic, postsurgical, and degenerative change. 4. Right fibula multiple healed fractures. 5. Right tibia mid diaphysis healing incomplete fracture, potentially an insufficiency or stress frac ture. No definite acute tibia-fibula fracture. Report Dictated By: Kendall Rodriguez MD at 02/13/2019 8:00 PM Report E-Signed By: Kendall Rodriguez MD at 02/13/2019 8:05 PM WSN:[email or web address]
== END 2019-02-13 19:21 | disposition short-term general hospital (02) ==
LOC: ER 17:44
DX: S72.331A Displaced oblique fracture of shaft of right femur, initial encounter for closed fracture (principal); J32.0 Chronic maxillary sinusitis
CPT/HCPCS: 70450; 71250; 72125; 72170; 73552; 73562; 73590; 74176; 81001; 83605; 85025; 85610; 85730; 86850; 86900; 86901; 90471; 90715; 96374; 99285; C1758; G0480; J3010; L0172; 80320; 82040; 82247; 82310; 82374; 82435; 82565; 82947; 84075; 84132; 84155; 84295; 84450; 84460; 84520

== ENCOUNTER → 2019-02-13 | Outpatient (CLI) | payer MEDICARE | LOC: AMB 16:22 | PROVIDERS: ATTEND Nurse Practitioner | DX: M79.604 Pain in right leg (principal); M21.851 Other specified acquired deformities of right thigh; W19.XXXA Unspecified fall, initial encounter | CPT/HCPCS: A0425; A0427 ==

== ENCOUNTER → 2019-02-13 | Outpatient (REF) | LOC: AMB 18:43 | PROVIDERS: ATTEND Nurse Practitioner | DX: Z02.9 Encounter for administrative examinations, unspecified (principal) ==

== ENCOUNTER → 2019-03-20 | Outpatient (REF) | payer MEDICARE ==
[2019-03-20 12:13] LABS: INR 1.08
== END ==
LOC: ZZSENDIN 11:46
PROVIDERS: ATTEND Family Medicine
DX: R18.8 Other ascites (principal)
CPT/HCPCS: 85610

== ENCOUNTER → 2019-03-23 | Outpatient (CLI) | payer MEDICARE ==
--- NOTE | 2019-03-23 16:36 | RADIOLOGY IMAGING REPORT ---
FACILITY: [facility] [place] PATIENT NAME: Sierra Oviedo : 1950 MR: [id number] V: [id number] EXAM DATE: ORDERING PHYSICIAN: MARGRET ALFONSO TECHNOLOGIST: Location: [facility] Patient: Sierra Oviedo : 1950 Visit/Account:[id number] Date of Sevice: 03/23/2019 Exam type: PARACENTESIS History: Abdominal and pelvic ascites Comparison: CT chest seven pelvis February 13, 2019. Findings: Informed consent was obtained. The right-sided the patient's abdomen was prepped and draped usual st erile fashion. Local anesthesia was accomplished 1% lidocaine. Utilizing sonographic guidance a par acentesis catheter was advanced percutaneously into the right lower quadrant of the anterior abdomen. Approximately 4680 mL of yellow ascitic fluid was removed from the peritoneal cavity. The procedur e was accomplished without apparent complication. IMPRESSION: 1. Successful sonographically guided paracentesis with interval removal of 4680 mL of ascites Report Dictated By: Coty Gonzales MD at 03/23/2019 4:30 PM Report E-Signed By: Coty Gonzales MD at 03/23/2019 4:31 PM SHANTANUN:[email or web address]
== END ==
LOC: US 03-21 01:22
PROVIDERS: ATTEND Family Medicine
DX: R18.8 Other ascites (principal)
CPT/HCPCS: 49083; A7048

== ENCOUNTER → 2019-04-03 | Outpatient (CLI) | payer MEDICARE ==
--- NOTE | 2019-04-03 15:34 | RADIOLOGY IMAGING REPORT ---
FACILITY: [facility] [place] PATIENT NAME: Sierra Oviedo : 1950 MR: [id number] V: [id number] EXAM DATE: ORDERING PHYSICIAN: MARGRET ALFONSO TECHNOLOGIST: Location: [facility] [place] Patient: Sierra Oviedo : 1950 Visit/Account:[id number] Date of Sevice: 04/03/2019 Ultrasound-guided paracentesis. HISTORY: Recurrent ascites. COMPARISON: 03/23/2019. The procedure and risks were explained to the patient who agreed to proceed. A preliminary ultrasound was performed confirming pockets of fluid in the lower abdomen and pelvis. Ultrasound images were re corded and archived. Following sterile prep and drape the abdominal wall was anesthetized with 8 ml 1 percent lidocaine without epinephrine. A skin bebe was made with a number 11 blade. A paracentesis c atheter was inserted into the abdominal cavity with care taken to avoid bowel loops and other major s tructures. Intra-abdominal fluid was removed prior to removal of the catheter. A sterile dressing was applied. The patient tolerated the procedure well without complications. TOTAL AMOUNT OF FLUID REMOVED: 5000 mL. FLUID COLOR: Cloudy yellow. AMOUNT OF FLUID SENT TO THE LABORATORY: None. INTRAVENOUS ALBUMIN ADMINISTERED: None. IMPRESSION: Ultrasound-guided paracentesis. Report Dictated By: Barrington South MD at 04/03/2019 3:28 PM Report E-Signed By: Barrington South MD at 04/03/2019 3:29 PM WSN:[email or web address]
== END ==
LOC: US 00:52
PROVIDERS: ATTEND Family Medicine
DX: R18.8 Other ascites (principal)
CPT/HCPCS: 49083; A7048

== ENCOUNTER 2019-04-26 11:25 | Outpatient (RCR) | payer MEDICARE ==
[2019-04-26 11:59] LABS: INR 1.22
--- NOTE | 2019-04-27 16:31 | RADIOLOGY IMAGING REPORT ---
FACILITY: [facility] [place] PATIENT NAME: Sierra Oviedo : 1950 MR: [id number] V: [id number] EXAM DATE: ORDERING PHYSICIAN: MARGRET ALFONSO TECHNOLOGIST: Location: [facility] Patient: Sierra Oviedo : 1950 Visit/Account:[id number] Date of Sevice: 04/27/2019 Exam type: PARACENTESIS History: Ascites Comparison: April 03, 2019. Findings: Informed consent was obtained. The patient's right-sided the abdomen was prepped and draped usual st erile fashion. Local anesthesia was accomplished 1% lidocaine. Under sonographic guidance a paracen tesis catheter was advanced percutaneously into the anterior right lateral aspect of the abdomen. 50 00 mL of straw-colored ascites was removed from the abdominal cavity. The procedure was accomplished without apparent complication. IMPRESSION: 1. Successful sonographically guided paracentesis with interval removal of 5000 mL of straw-colored ascites. Report Dictated By: Coty Gonzales MD at 04/27/2019 4:25 PM Report E-Signed By: Coty Gonzales MD at 04/27/2019 4:27 PM WSN:[email or web address]
== END 2019-04-27 18:00 | disposition home or self-care (01) ==
LOC: LAB 11:25
PROVIDERS: ATTEND Family Medicine
DX: R18.8 Other ascites (principal)
CPT/HCPCS: 36415; 49083; 85610; A7048

== ENCOUNTER → 2019-05-09 | Outpatient (CLI) | payer MEDICARE ==
--- NOTE | 2019-05-09 15:24 | RADIOLOGY IMAGING REPORT ---
[facility] PATIENT NAME: Sierra Oviedo : 1950 MR: [id number] V: [id number] EXAM DATE: ORDERING PHYSICIAN: MARGRET ALFONSO TECHNOLOGIST: Location: [facility] Patient: Sierra Oviedo : 1950 Visit/Account:[id number] Date of Sevice: 05/09/2019 PARACENTESIS HISTORY: Recurrent ascites. COMPARISON: None. FINDINGS: The procedure and risks were explained to the patient who agreed to proceed. A preliminary ultrasound was performed confirming large pockets of fluid in the lower abdomen and pelvis. Ultrasound images w ere recorded and archived. Following sterile prep and drape the lateral right lower quadrant abdomina l wall was anesthetized with 6 ml 1 percent lidocaine without epinephrine. A paracentesis catheter wa s inserted into the abdominal cavity with care taken to avoid bowel loops and other major structures. Approximately 5320 mL clear yellow fluid was removed prior to removal of the catheter. A sterile dr essing was applied. The patient tolerated the procedure well without complications. IMPRESSION: Technically successful and uneventful ultrasound-guided therapeutic paracentesis. Report Dictated By: Angel Granados MD at 05/09/2019 3:16 PM Report E-Signed By: Angel Granados MD at 05/09/2019 3:19 PM WSN:[email or web address]
== END ==
LOC: US 01:04
PROVIDERS: ATTEND Family Medicine
DX: R18.8 Other ascites (principal)
CPT/HCPCS: 49083; A7048

== ENCOUNTER → 2019-05-23 | Outpatient (CLI) | payer MEDICARE ==
--- NOTE | 2019-05-23 18:11 | RADIOLOGY IMAGING REPORT ---
FACILITY: [facility] [place] PATIENT NAME: Sierra Oviedo : 1950 MR: [id number] V: [id number] EXAM DATE: ORDERING PHYSICIAN: MARGRET ALFONSO TECHNOLOGIST: Location: [facility] [place] Patient: Sierra Oviedo : 1950 Visit/Account:[id number] Date of Sevice: 05/23/2019 Exam type: PARACENTESIS History: Ascites Comparison: May 09, 2019. Findings: Informed consent was obtained. The right-sided the patient's abdominal wall was prepped and draped u sual sterile fashion. Local anesthesia was accomplished with 1% lidocaine. Under sonographic guidan ce a paracentesis catheter was advanced percutaneously into the right-sided the peritoneal cavity. 5 000 mL of yellowish fluid was removed from the peritoneal cavity. The procedure was a copy slight ap parent complication IMPRESSION: 1. Successful sonographically guided paracentesis with interval removal of 5000 mL of yellowish asci tic fluid Report Dictated By: Coty Gonzales MD at 05/23/2019 6:03 PM Report E-Signed By: Coty Gonzales MD at 05/23/2019 6:04 PM WSN:[email or web address]
== END ==
LOC: US 00:41
PROVIDERS: ATTEND Family Medicine
DX: R18.8 Other ascites (principal)
CPT/HCPCS: 49083; A7048

== ENCOUNTER → 2019-06-06 | Outpatient (CLI) | payer MEDICARE ==
[~2019-06-06] MED LIST changes: +LIDOCAINE MPF 1% 5 ML VIAL ONE
--- NOTE | 2019-06-06 15:00 | RADIOLOGY IMAGING REPORT ---
FACILITY: [facility] [place] PATIENT NAME: Sierra Oviedo : 1950 MR: [id number] V: [id number] EXAM DATE: ORDERING PHYSICIAN: MARGRET ALFONSO TECHNOLOGIST: Location: [facility] [place] Patient: Sierra Oviedo : 1950 Visit/Account:[id number] Date of Sevice: 06/06/2019 EXAMINATION: Ultrasound-guided paracentesis INDICATION: Ascites TECHNIQUE: After obtaining informed consent from the patient, the patient was placed in the supine po sition and a timeout was performed. Ultrasound was performed to identify the largest pocket of fluid. This was identified within the righ t upper quadrant of the abdomen. Ultrasound images were saved to the PACS system. The overlying skin was prepped and draped in a sterile fashion and infiltrated with 1% lidocaine. Using ultrasound guidance, a 5.0 Armenian Yueh catheter was inserted into the ascitic fluid. 5000 ml of ascitic fluid was collected and discarded. The patient tolerated the procedure well. No immediate complications were noted. IMPRESSION: Ultrasound-guided paracentesis. Report Dictated By: Kevin Sigala at 06/06/2019 2:52 PM Report E-Signed By: Kevin Sigala at 06/06/2019 2:53 PM SHANTANUN:[email or web address]
== END ==
LOC: US 00:52
PROVIDERS: ATTEND Family Medicine
DX: R18.8 Other ascites (principal)
CPT/HCPCS: 49083; A7048; J2001

== ENCOUNTER → 2019-06-15 | Outpatient (CLI) | payer MEDICARE ==
[~2019-06-15] MED LIST changes: -LIDOCAINE MPF 1% 5 ML VIAL ONE
[2019-06-15 13:44] LABS: INR 1.15
--- NOTE | 2019-06-15 17:14 | RADIOLOGY IMAGING REPORT ---
FACILITY: [facility] [place] PATIENT NAME: Sierra Oviedo : 1950 MR: [id number] V: [id number] EXAM DATE: ORDERING PHYSICIAN: MARGRET ALFONSO TECHNOLOGIST: Location: [facility] Patient: Sierra Oviedo : 1950 Visit/Account:[id number] Date of Sevice: 06/15/2019 PARACENTESIS ADDITIONAL PERTINENT HISTORY: None. PROCEDURE: Following informed consent and timeout the entire abdomen was sonographically interrogate d and the largest pocket of ascites was identified and localized in the right upper quadrant. Overlyi ng skin was prepped and draped in the usual sterile fashion. Under sonographic guidance the skin and subcutaneous tissues and peritoneal lining was anesthetized with 1% lidocaine. A small dermatotomy wa s made and under sonographic guidance a paracentesis needle was carefully advanced into the ascites. Tubing was attached to the paracentesis catheter and ascites was withdrawn via suction. A total of 8000 ML of clear yellow ascites was withdrawn. There is still a large amount of ascites remaining. Patient tolerated the procedure well. IMPRESSION: Successful ultrasound-guided paracentesis with a total of 8000 ML of ascites withdrawn. I spoke with MARGRET ALFONSO, referring physician.. We could withdraw a greater amount of fluid if w e can arrange standing orders for post procedural albumin to be administered at the cancer Center. Report Dictated By: Rolf Allison MD at 06/15/2019 5:03 PM Report E-Signed By: Rolf Allison MD at 06/15/2019 5:06 PM WSN:[email or web address]
== END ==
LOC: LAB 00:33
PROVIDERS: ATTEND Family Medicine
DX: R18.8 Other ascites (principal)
CPT/HCPCS: 36415; 49083; 85610; A7048

== ENCOUNTER → 2019-06-22 | Outpatient (CLI) | payer MEDICARE ==
--- NOTE | 2019-06-22 17:55 | RADIOLOGY IMAGING REPORT ---
FACILITY: [facility] [place] PATIENT NAME: Sierra Oviedo : 1950 MR: [id number] V: [id number] EXAM DATE: ORDERING PHYSICIAN: MARGRET ALFONSO TECHNOLOGIST: Location: [facility] Patient: Sierra Oviedo : 1950 Visit/Account:[id number] Date of Sevice: 06/22/2019 Exam type: PARACENTESIS History: Ascites Comparison: June 15, 2019. Findings: Informed consent was obtained. The right lower side of the patient's abdomen was prepped and draped usual sterile fashion. Local anesthesia was accomplished with 1% lidocaine. Utilizing sonographic g uidance a paracentesis catheter was advanced into the peroneal cavity. Approximately 7750 mL of ketan r yellow fluid was removed from the peritoneal cavity. The procedure was accomplished without appare nt competition. The patient was then immediately taken from the ultrasound suite to the [facility] for intravenous albumin administration which was ordered per Dr. Alfonso. Impression: Successful ultrasound-guided paracentesis with interval removal of 7750 mL of ascitic flu id from the peroneal cavity under sonographic guidance. The patient was immediately taken to the [facility] received intravenous albumin Report Dictated By: Coty Gonzales MD at 06/22/2019 5:44 PM Report E-Signed By: Coty Gonzales MD at 06/22/2019 5:48 PM WSN:[email or web address]
== END ==
LOC: US 00:49
PROVIDERS: ATTEND Family Medicine
DX: R18.8 Other ascites (principal)
CPT/HCPCS: 49083; A7048

== ENCOUNTER → 2019-06-29 | Outpatient (CLI) | payer MEDICARE ==
--- NOTE | 2019-06-29 17:30 | RADIOLOGY IMAGING REPORT ---
FACILITY: [facility] PATIENT NAME: Sierra Oviedo : 1950 MR: [id number] V: [id number] EXAM DATE: ORDERING PHYSICIAN: MARGRET ALFONSO TECHNOLOGIST: Location: [facility] Patient: Sierra Oviedo : 1950 Visit/Account:[id number] Date of Sevice: 06/29/2019 Exam type: PARACENTESIS History: Abdominal ascites Comparison: June 22, 2019. Findings: Informed consent was obtained. The right lateral aspect of the patient's mid to lower abdomen was pr epped and draped usual sterile fashion. Local anesthesia was accomplished 1% lidocaine. Under sonog raphic guidance a paracentesis catheter was advanced percutaneously into the anterior right-sided the peritoneal cavity. 8000 mL of clear yellow fluid was removed from the peritoneal cavity. The patie nt then went to the cancer Center for IV albumin therapy. The procedure was accomplished without ashley arent complication. IMPRESSION: 1. Successful sonographically guided paracentesis with interval removal of 8000 mL of clear yellow f luid. The procedure was accomplished without apparent competition. The patient was taken to the [facility] for IV albumin therapy Report Dictated By: Coty Gonzales MD at 06/29/2019 5:19 PM Report E-Signed By: Coty Gonzales MD at 06/29/2019 5:21 PM WSN:[email or web address]
== END ==
LOC: US 00:54
PROVIDERS: ATTEND Family Medicine
DX: R18.8 Other ascites (principal)
CPT/HCPCS: 49083; A7048

== ENCOUNTER → 2019-07-06 | Outpatient (CLI) | payer MEDICARE ==
--- NOTE | 2019-07-06 16:51 | RADIOLOGY IMAGING REPORT ---
FACILITY: [facility] [place] PATIENT NAME: Sierra Oviedo : 1950 MR: [id number] V: [id number] EXAM DATE: ORDERING PHYSICIAN: MARGRET ALFONSO TECHNOLOGIST: Location: [facility] [place] Patient: Sierra Oviedo : 1950 Visit/Account:[id number] Date of Sevice: 07/06/2019 Exam type: PARACENTESIS History: Ascites Comparison: June 29, 2019. Findings: Informed consent was obtained. The anterior right lower abdominal wall was prepped and draped usual sterile fashion. Local anesthesia was accomplished with 1% lidocaine. Utilizing sonographic guidanc e a paracentesis catheter was advanced percutaneously into the peritoneal cavity. 8000 mL of clear y ellow ascitic fluid was removed from the peritoneal cavity. The patient was immediately taken to the [facility] for albumin therapy. The procedure was accomplished without apparent complication. IMPRESSION: 1. Successful sonographically guided paracentesis with interval removal of 8000 mL of clear yellow a scitic fluid. The patient was taken to the [facility] for albumin therapy immediately following t he paracentesis Report Dictated By: Coty Gonzales MD at 07/06/2019 4:41 PM Report E-Signed By: Coty Gonzales MD at 07/06/2019 4:42 PM SHANTANUN:[email or web address]
== END ==
LOC: US 02:05
PROVIDERS: ATTEND Family Medicine
DX: R18.8 Other ascites (principal)
CPT/HCPCS: 49083; A7048

== ENCOUNTER 2019-07-13 12:00 | Outpatient (RCR) | payer MEDICARE ==
[2019-06-22 15:51] VITALS: BP 131/45
[2019-06-22] MEDS: ALBUMIN HUMAN 25% 50 ML VIAL 50 ML IVPB SCH ×4 (16:07→16:51)
[2019-06-22 17:05] VITALS: BP 115/45
[2019-06-29 15:08] VITALS: BP 139/60
[2019-06-29] MEDS: ALBUMIN HUMAN 25% 50 ML VIAL 50 ML IVPB SCH ×4 (15:16→15:40)
[2019-06-29 15:58] VITALS: BP 109/59
[2019-07-06 15:00] VITALS: BP 126/68
[2019-07-06] MEDS: ALBUMIN HUMAN 25% 50 ML VIAL 50 ML IVPB SCH ×5 (15:17→15:56)
[~2019-07-13 12:00] MED LIST changes: +ALBUMIN HUMAN 25% 50 ML VIAL 50 ML IVPB SCH; +DEXTROSE 5%(*) 100 ML BAG 100 ML IVPB PRN; +LIDOCAINE/SOD BICARB 8.4% SYR ID PRN; +NS(*) 0.9% 100 ML BAG 100 ML IVPB PRN
[2019-07-13] MEDS: ALBUMIN HUMAN 25% 50 ML VIAL 50 ML IVPB SCH ×5 (14:53→15:29)
[2019-07-13 15:33] VITALS: BP 115/47
== END 2019-07-15 | disposition home or self-care (01) ==
LOC: SPU 12:00
PROVIDERS: ATTEND Family Medicine
DX: R18.8 Other ascites (principal)
CPT/HCPCS: 49083; 96365; A7048; P9047

== ENCOUNTER → 2019-07-13 | Outpatient (CLI) | payer MEDICARE ==
--- NOTE | 2019-07-13 15:55 | RADIOLOGY IMAGING REPORT ---
FACILITY: [facility] [place] PATIENT NAME: Sierra Oviedo : 1950 MR: [id number] V: [id number] EXAM DATE: ORDERING PHYSICIAN: MARGRET ALFONSO TECHNOLOGIST: Location: [facility] [place] Patient: Sierra Oviedo : 1950 Visit/Account:[id number] Date of Sevice: 07/13/2019 EXAMINATION: Ultrasound-guided paracentesis 07/13/2019 11:00 AM HISTORY: Ascites. Therapeutic paracentesis requested COMPARISON: 07/06/2019 FINDINGS: Ultrasound guided paracentesis was discussed with patient and informed consent was obtaine d. Ultrasound demonstrated a large amount of ascites in the abdomen and an appropriate site for perc utaneous access in the right lower quadrant was selected and marked on the skin. Ultrasound imaging was archived into the PACS system. The skin was prepped with ChloraPrep and fenestrated draping was placed. 1% lidocaine was utilized for local anesthesia from the skin down into the abdominal wall. A small bebe was made in the skin with a scalpel blade. A 5 Pakistani Yueh catheter was advanced into t he peritoneal cavity. Yellowish ascitic fluid returned freely with respiration and the catheter was fed off the needle stylette. A total of 8000 mL of fluid was then collected into bottles. The moise ter was removed. No immediate complications were noted. The patient was scheduled to receive albumi n in the clinic today following paracentesis. No laboratory evaluation had been requested and the as pirated fluid was discarded. IMPRESSION: Technically successful ultrasound guided paracentesis. 8000 mL of ascitic fluid was gabriel travis from the right lower quadrant. Report Dictated By: Jhoan Agarwal MD at 07/13/2019 3:44 PM Report E-Signed By: Jhoan Agarwal MD at 07/13/2019 3:46 PM WSN:[email or web address]
== END ==
LOC: US 03:58
PROVIDERS: ATTEND Family Medicine
DX: R18.8 Other ascites (principal)
CPT/HCPCS: 49083; A7048